=== PATIENT | male | born 1975 | race Two or more races ===

== ENCOUNTER 2021-09-19 15:53 | Emergency (ER) | payer OTHER ==
[~2021-09-19] VITALS: Ht 180.3 cm; Wt 89.0 kg
[2021-09-19 17:49] VITALS: BP 109/67
[2021-09-19] MEDS ORDERED: CEPHALEXIN 250 MG CAPSULE. PO STA (17:56)
[2021-09-19] MEDS ORDERED: SMZ/TMP 800/160MG TABLET. PO ONE (18:00)
[2021-09-19] MEDS ORDERED: IBUPROFEN 200 MG TABLET. PO ONE (18:00)
[2021-09-19] MEDS ORDERED: HYDROcodone/APAP 5/325MG 1 TAB TABLET PO ONE (18:00)
[2021-09-19] MEDS ORDERED: SULF1TAB24 PO (18:46)
[2021-09-19] MEDS ORDERED: MUPI22OI2 TP (18:46)
[2021-09-19] MEDS ORDERED: CEPH500T PO (18:46)
--- NOTE | 2021-09-19 18:47 | PHYS DOC ---
Past Medical History Past Surgical History: No Surgical History Smoking Status: Never Smoker Alcohol Use: None General Adult EDM: Chief Complaint: WOUND CHECK HPI: HPI: Patient is a 46-year-old male presents to the emergency department via [facility] transport, patient is a inmate in the [facility] skilled nursing. Reports a history of septic arthritis with the right wrist, essential hypertension, GERD, asthma, cracked teeth. Patient comes to the emergency department today with a chief complaint of infection of the right thigh. Patient reports 8 days ago he felt a boil, was seen [facility] nurse who then squeezed the area, patient reports no pus or drainage came out other than blood. Patient reports a culture was taken. Patient reports he was started on Bactrim DS last night and has taken last night's dose and this morning's dose, patient was then transported to the emergency department for further evaluation of his infected wound of the right thigh. Patient denies allergies to medications, denies taking other medications while in skilled nursing. Patient does report a concern that he has asked for medical attention related to this leg infection and has only been allowed to be seen twice in the [facility]. Patient believes if he had daily wound care and attention to this infection that it would not be as bad as it is today. Patient denies other physical complaints or physical concerns. Review of Systems: Review of Systems: 14 body systems of review of systems have been reviewed. See HPI for pertinent positives and negative responses, otherwise all other systems are negative, nonpertinent or noncontributory. Constitutional: Negative except as outlined in HPI above. Skin: Negative except as outlined in HPI above. Eyes: Negative except as outlined in HPI above. HENT: Negative except as outlined in HPI above. Respiratory: Negative except as outlined in HPI above. Cardiovascular: Negative except as outlined in HPI above. GI: Negative except as outlined in HPI above. : Negative except as outlined in HPI above. Musculoskeletal: Negative except as outlined in HPI above. Integument: Negative except as outlined in HPI above. Neurologic: Negative except as outlined in HPI above. Endocrine: Negative except as outlined in HPI above. Lymphatic: Negative except as outlined in HPI above. Psychiatric: Negative except as outlined in HPI above. Heart Score: C/O Chest Pain: No Risk Factors: Risk Factors: DM, Current or recent (<one month) smoker, HTN, HLP, family history of CAD, obesity. Risk Scores: Score 0 - 3: 2.5% MACE over next 6 weeks - Discharge Home Score 4 - 6: 20.3% MACE over next 6 weeks - Admit for Clinical Observation Score 7 - 10: 72.7% MACE over next 6 weeks - Early Invasive Strategies Current Medications: Current Medications Medications (Trade) Dose Ordered Sig/Ho Start Time Stop Time Status Last Admin Dose Admin Acetaminophen/ Hydrocodone Bitart (Lortab 5/325) 2 tab 1X ONCE 09/19/21 18:00 09/19/21 18:01 DC Cephalexin HCl (Keflex) 500 mg 1X STAT 09/19/21 17:56 09/19/21 18:01 DC 09/19/21 18:06 500 MG Ibuprofen (Motrin) 600 mg 1X ONCE 09/19/21 18:00 09/19/21 18:01 DC Trimethoprim/ Sulfamethoxazole (Bactrim Ds) 1 tab 1X ONCE 09/19/21 18:00 09/19/21 18:01 DC 09/19/21 18:06 1 TAB Allergies: Allergies: Allergies Coded Allergies Type Severity Reaction Last Updated Verified No Known Drug Allergies 09/19/21 No Physical Exam: PE: Constitutional: Well developed, well nourished, no acute distress, non-toxic appearance. 46-year-old male in no apparent distress. Patient is in hand and ankle shackles. There is a [facility] facility officer at bedside. HENT: Normocephalic, atraumatic. Eyes: Conjunctiva normal, no discharge. Neck: Normal range of motion, no stridor. Cardiovascular: No cyanosis appreciated, distal cap refill less than 2 seconds. Lungs & Thorax: Patient is in no respiratory distress, no audible adventitious lung sounds appreciated. Abdomen: Nontender, no abnormalities noted. Skin: Warm, dry, no erythema, no rash. See extremity note for focused skin examination. Back: No tenderness, no deformities. Extremities: No tenderness, no cyanosis, no clubbing, ROM intact, no edema. Except for the right thigh posterior aspect just distal to the gluteal fold, there is a 4 cm x 3 cm stage III skin ulcer with wound granulation, no purulent drainage appreciated, mild pink erythema just around wound opening edges with induration, clearly demarcated borders. Neurologic: Alert and oriented X 3, normal motor function, normal sensory function, no focal deficits noted. Psychologic: Affect normal, judgement normal, mood normal. Current Patient Data: Vital Signs: Vital Signs Date Time Temp Pulse Resp B/P (MAP) Pulse Ox O2 Delivery O2 Flow Rate FiO2 09/19/21 17:49 97.7 56 12 109/67 (81) 100 Room Air 97.7 EKG: EKG: [] Radiology/Procedures: Radiology/Procedures: [] Course & Med Decision Making: Course & Med Decision Making Pertinent Labs and Imaging studies reviewed. (See chart for details) 46-year-old male, vital signs reviewed, presents to the emergency department with chief complaint of infection to right thigh. Physical examination reveals stage III skin ulcer appears well-healing, there is new wound granulation tissue with in the ulcer, a review of patient's culture and sensitivity shows patient's current antibiotic regimen Bactrim is appropriate for this MSSA organism. We will start additional antibiotic Keflex along with topical mupirocin ointment, strict daily cleansing and application of dressings, wound care follow-up, return to ER precautions and concerns were reviewed with patient and patient's protective services officer. Patient gave verbal understanding of and is amenable to ED discharge planning. Discussed with the patient all findings and diagnostic testing as well as the need to follow-up with their primary care provider for further evaluation and treatment or return to the ED if any new or worsening symptoms. Strict return precautions were also discussed at length, the patient voiced understanding and agreement with the discharge planning. The patient was nontoxic in appearance, in no apparent distress, and hemodynamically stable at the time of disposition. Dragon Disclaimer: Dragon Disclaimer: This electronic medical record was generated, in whole or in part, using a voice recognition dictation system. Departure Departure Impression: Primary Impression: Wound abscess Disposition: HOME / SELF CARE / HOMELESS Condition: GOOD Referrals: NO PCP (PCP) Patient Instructions: Wound Care, [id number], Wound Check Additional Instructions: You were seen today in the emergency department for a infectious ulcer of the right thigh. This appears to be healing well, you are currently taking Bactrim DS however I am starting you on an additional oral antibiotic along with an additional topical antibiotic, you will need to take the Bactrim twice a day until completed you will need to take the cephalexin 4 times a day for the next 7 days, you will need to apply the mupirocin ointment 3 times a day for the next 7 days. Your dressing will need to be changed with each application of the Neftali Del Rosario ointment, performed 3 dressing changes and wound care per day. Please have the [facility] physician examine your wound in 3 days. Return to the emergency department for worsening symptoms or other concerns. Thank you for visiting our Emergency Department. It was a pleasure taking care of you today in the emergency department and we appreciate you trusting us with your care. If any additional problems come up don't hesitate to return to visit us. Please follow up with your primary care provider so they can plan additional care if needed and know about the problem that you had. If symptoms worsen come back to the Emergency Department. Any concerning symptoms that start such as chest pain, shortness of air, weakness or numbness on one side of the body, running high fevers or any other concerning symptoms return to the ER. Scripts Mupirocin (MUPIROCIN OINTMENT) 22 Gm Oint...g. 1 ARTUR TP TID for WOUND CARE, #1 TUBE 0 Refills Apply to wound site 3 times a day for the next 7 days. Prov: CRISTA SAGASTUME APRN 09/19/21 Sulfamethoxazole/Trimethoprim (BACTRIM DS TABLET) 1 Each Tablet 1 TAB PO BID for skin infection for 7 Days, #14 TAB 0 Refills Prov: CRISTA SAGASTUME APRN 09/19/21 Cephalexin (CEPHALEXIN) 500 Mg Tablet 1 TAB PO QID for skin infection for 7 Days, #28 TAB 0 Refills Prov: CRISTA SAGASTUME APRN 09/19/21 CRISTA SAGASTUME APRN Sep 19, 2021 18:47
== END 2021-09-19 19:00 | disposition home or self-care (01) ==
LOC: ER 15:53 → EEVIPCON 15:53 → ER 19:00
DX: L02.415 Cutaneous abscess of right lower limb (principal)
CPT/HCPCS: 99284